=== PATIENT | female | born 1990 | race African-American/Black ===

== ENCOUNTER 2017-08-20 10:22 | Emergency (ER) | payer MEDICAID ==
[2016-10-30 09:32] VITALS: BMI 50.6
[~2017-08-20 10:22] MED LIST: HUMULIN N100 U/ML SC; IBUPROFEN600 MG PO; IBUPROFEN800 MG PO; PERCOCET 10/3251 TA1 PO; PERCOCET 5-3251 TAB PO
== END 2017-08-20 11:06 | disposition home or self-care (01) ==
LOC: D.ER 10:22
DX: M25.552 Pain in left hip (principal); W19.XXXA Unspecified fall, initial encounter; Y93.89 Activity, other specified; Y92.512 Supermarket, store or market as the place of occurrence of the external cause

== ENCOUNTER 2019-02-14 09:39 | Emergency (ER) | payer MEDICAID ==
[~2019-02-14] VITALS: Ht 154.9 cm; Wt 109.1 kg
[2019-02-14 09:42] VITALS: Ht 154.9 cm; Wt 109.1 kg
[2019-02-14 10:34] LABS: BASOPHILS 0.3 % (0-2); EOSINOPHILS 4.4 % (0-7); HEMATOCRIT 42.3 % (36.0-48.0); HEMOGLOBIN 14.7 g/dL (12-16); IMMATURE GRANULOCYTES 0.3 % (0-5); LYMPHOCYTES 32.2 % (15-50); MCH 29.4 pg (26.0-34.0); MCHC 34.8 g/dL (31.0-37.0); MCV 84.6 fL (80.0-100.0); MEAN PLATELET VOLUME 10.5 fL (7.4-10.4); MONOCYTES 7.4 % (2-11); NEUTROPHILS 55.4 % (40-80); RDW 13.5 % (11.5-14.5); WBC 6.6 10x3/uL (4.8-10.8)
[2019-02-14 10:47] LABS: APTT 34.8 SECONDS (22.8-39.4); INR 0.99 (0.85-1.17); PROTIME 12.6 SECONDS (11.6-15.0)
[2019-02-14 10:48] LABS: D-DIMER-QUANTITATIVE 0.37 ug/mLFEU (0.20-0.54)
[2019-02-14 10:51] LABS: PLATELET COUNT 262 10x3/uL (130-400)
[2019-02-14 10:52] LABS: ALBUMIN 3.7 g/dL (3.4-5.0); ALKALINE PHOSPHATASE 58 U/L (46-116); ALT (SGPT) 11 U/L (10-68); BILIRUBIN - TOTAL 0.29 mg/dL (0.2-1.3); CALC OSMOLALITY 280 mosm/kg (275-300); CALCIUM 9.1 mg/dL (8.5-10.1); CARBON DIOXIDE 25.7 mmol/L (21.0-32.0); CHLORIDE - SERUM 105 mmol/L (98-107); CREATININE - SERUM 0.7 mg/dL (0.6-1.3); GLUCOSE 110 mg/dL (74-106); POTASSIUM - SERUM 3.6 mmol/L (3.5-5.1); PROTEIN - SERUM 8.3 g/dL (6.4-8.2); SODIUM 140 mmol/L (136-145); UREA NITROGEN 16 mg/dL (7-18); eGFR NON AFRICAN AMERICAN > 90 mL/min (90-120)
[2019-02-14 11:03] LABS: C-REACTIVE PROTEIN 3.3 mg/dL (0.0-0.9); CKMB 0.4 U/L (0.0-3.6); CREATINE KINASE 88 UL (21-215); MAGNESIUM - SERUM 2.4 mg/dL (1.8-2.4)
[2019-02-14 11:07] LABS: TROPONIN-I < 0.017 ng/mL (0.000-0.060)
[2019-02-14] MEDS ORDERED: STERAPRED DS 1010 MG PO (11:59)
[2019-02-14] MEDS ORDERED: IBUPROFEN800 MG PO (11:59)
[2019-02-14 12:12] LABS: ERYTHROCYTE SEDIMENTATION RATE 30 mm/hr (0-20)
[2019-02-14 12:33] VITALS: BP 105/61
--- NOTE | 2019-02-17 15:03 | CN ---
PATIENT NAME:NICOLE ZABALA MEDICAL RECORD: [id number] : 89 LOCATION:.ER ADMIT DATE: ACCOUNT: [id number] CONSULTING PHYSICIAN: KELVIN SILVA MD REFERRING PHYSICIAN: RADHA VILLAVICENCIO MD DATE OF CONSULTATION: 02/14/2019 CARDIOLOGY CONSULTATION DIAGNOSES: 1. Chest pain compatible with pericarditis. 2. Recent viral illness. HISTORY OF PRESENT ILLNESS: Mrs. Moreno presents with chest pain. It is a sharp stabbing pain, it is worse when she is lying down, better when she sits up. She has had a recent viral illness. Her EKG has nonspecific ST changes compatible with pericarditis. PHYSICAL EXAMINATION: GENERAL APPEARANCE: Well-nourished, well-developed, appears stated age. Level of distress, comfortable. PSYCHIATRIC: Mental status, alert, normal affect. Orientation, oriented to time, place and person. EYES: Lids and conjunctiva, noninjected. No discharge, no pallor. ENT: Lips, teeth, gums, normal dentition. Oropharynx, no cyanosis, no pallor. NECK: Carotid arteries, bilateral normal upstroke, no bruits, no thrills. JUGULAR VEINS: No jugular venous pressure or distention. CERVICAL LYMPH NODES: Nontender, nonenlarged. THYROID: Not enlarged. Nontender. No nodules. LUNGS: Respiratory effort, unlabored. CHEST: Normal curvature. No thoracic deformity. No chest wall tenderness. Percussion, resonant. Auscultation, clear. No wheezes, no rales, no rhonchi. CARDIOVASCULAR: Precordial exam, nondisplaced. No heaves or pericardial thrills. Rate and rhythm, regular. Heart sounds, normal S1, normal S2. No S3, no gallop, no rub. Systolic murmur, not heard. Diastolic murmur, not heard. EXTREMITIES: No cyanosis, no edema. Peripheral pulses, full and equal in all extremities, except as noted. No bruits appreciated. ABDOMEN: Soft, nondistended. Normal aorta. No bruit. Nontender. No masses. Liver, nontender, no hepatomegaly. Spleen, nontender, no splenomegaly. MUSCULOSKELETAL: No joint tenderness. No joint swelling. No erythema. NEUROLOGICAL: Normal gait, normal strength, normal tone. SKIN: Warm and dry. OVERALL IMPRESSION: Chest pain compatible with pericarditis. EKG compatible with pericarditis, most likely is viral a pericarditis. I have asked her to take Motrin on a b.i.d. basis as well as we will give her a Medrol Dosepak. We will follow up only if she has recurrent chest pain. TRANSINT:[id number] Voice Confirmation ID: [id number] DOCUMENT ID: [id number] CONSULT REPORT [id number] NICOLE ZABALA, KELVIN MCKINLEY at 1503 CC: [id number] DICTATION DATE: 02/14/19 1144 BUSINESS QUALITY ASSURANCE ANALYST: 02/14/19 1248 DEP ER 02/14/19 [id number] [place] [address]
--- NOTE | 2019-02-17 15:03 | EC ---
PATIENT:NICOLE ZABALA DATE OF SERVICE: 02/14/19 SEX: F MEDICAL RECORD: [id number] DATE OF : [birth year] LOCATION:D.ER AGE OF PATIENT: 28 ADMISSION DATE: 02/14/19 REFERRING PHYSICIAN: INTERPRETING PHYSICIAN: KELVIN ARANDA MD ECHOCARDIOGRAM REPORT ECHO CHARGES 4 ECHO COMPLETE Date: 02/14/19 CLINICAL DIAGNOSIS: CP ECHOCARDIOGRAPHIC MEASUREMENTS (adult normal given) AC root (d.<3.7cm) 2.7 cm LV Septum d (<1.2 cm> 1.2 cm Valve Excursion 1.6 cm LV Septum (systole) 1.7 cm Left Atria (s.<4.0cm> 3.4 cm LVPW d(<1.2cm) 0.9 cm RV (d.<2.3cm) 3.0 cm LVPW (sytole) 1.1 cm LV diastole(<5.6CM) 5.1 cm MV E-F(>70mm/sec) cm LV systole 3.7 cm LVOT Diameter 1.4 cm MV exc.(>10mm) cm Est.ejection fraction (50-75%) % DOPPLER: LVIT cm/sec A 27 cm/sec E 65 cm/sec LA cm/sec RVSP 17.8 mmHg LVOT 120 cm/sec AOP1/2T m/s Asc. Ao 124 cm/sec RVOT 65 cm/sec RA cm/sec PA 97 cm/sec AV Gradient Peak 6.2 mmHg AV Mean 3.3 mmHg AV Area 1.6 cm MV Gradient Peak 2.2 mmHg MV Mean 0.9 mmHg MV Area cm COMMENTS: Hospital Superintendent: Nirav [facility] Muck Boss: 1 Dr. Aranda TAPE# PACS Pericardial Effusion N DATE OF SERVICE: 02/14/2019 PROCEDURE: Echocardiogram. FINDINGS: 1. Left ventricular chamber size is within normal limits. Left ventricular systolic function is normal. Overall ejection fraction estimated at 55%. 2. Left atrium, right atrium, and right ventricle chamber sizes are within normal limits. 3. Valvular structures have normal structure and motion. ECHOCARDIOGRAM REPORT [id number] NICOLE ZABALA 4. Doppler interrogation reveals mild tricuspid regurgitation, no other valvular insufficiency or stenosis. Pulmonary systolic pressure is normal estimated at 18 mmHg. 5. No evidence of pericardial effusion or left ventricular thrombus. TRANSINT:[id number] Voice Confirmation ID: [id number] DOCUMENT ID: [id number] KELVIN ARANDA MD at 1503 CC: [id number] DICTATION DATE: 02/14/19 1210 TABLE LEVER OPERATOR: 02/14/19 1347 DEP ER 02/14/[address] [facility] [address] [id number]
== END 2019-02-14 12:31 | disposition home or self-care (01) ==
LOC: D.ER 09:39
PROVIDERS: Family Medicine
DX: I31.9 Disease of pericardium, unspecified (principal)

== ENCOUNTER 2019-04-02 18:11 | Emergency (ER) | payer MEDICAID ==
[~2019-04-02 18:11] MED LIST changes: +STERAPRED DS 1010 MG PO
[2019-04-02 18:14] VITALS: BMI 44.8
[2019-04-02 18:48] LABS: APPEARANCE CLEAR (CLEAR); BILIRUBIN NEGATIVE (NEGATIVE); COLOR STRAW (YELLOW); GLUCOSE NEGATIVE (NEGATIVE); KETONE NEGATIVE (NEGATIVE); NITRITE NEGATIVE (NEGATIVE); PROTEIN NEGATIVE (NEGATIVE); UROBILINOGEN NORMAL (NORMAL)
[2019-04-02 18:58] LABS: BASOPHILS 0.2 % (0-2); EOSINOPHILS 1.5 % (0-7); HEMATOCRIT 38.9 % (36.0-48.0); HEMOGLOBIN 13.7 g/dL (12-16); IMMATURE GRANULOCYTES 0.1 % (0-5); LYMPHOCYTES 34.1 % (15-50); MCH 29.6 pg (26.0-34.0); MCHC 35.2 g/dL (31.0-37.0); MEAN PLATELET VOLUME 9.8 fL (7.4-10.4); MONOCYTES 8.8 % (2-11); NEUTROPHILS 55.3 % (40-80); PLATELET COUNT 238 10x3/uL (130-400); RBC 4.63 10x6/uL (4.00-5.40); RDW 13.3 % (11.5-14.5); WBC 8.2 10x3/uL (4.8-10.8)
[2019-04-02 21:07] VITALS: BP 132/79
== END 2019-04-02 21:07 | disposition home or self-care (01) ==
LOC: D.ER 18:11
PROVIDERS: Emergency Medicine
DX: O26.891 Other specified pregnancy related conditions, first trimester (principal); Z3A.01 Less than 8 weeks gestation of pregnancy

== ENCOUNTER → 2019-10-16 11:59 | Outpatient (CLI) | payer MEDICAID ==
[2019-10-16 14:41] LABS: APPEARANCE CLEAR (CLEAR); BILIRUBIN NEGATIVE (NEGATIVE); COLOR YELLOW (YELLOW); GLUCOSE NEGATIVE (NEGATIVE); KETONE NEGATIVE (NEGATIVE); NITRITE NEGATIVE (NEGATIVE); PROTEIN NEGATIVE (NEGATIVE); SPECIFIC GRAVITY 1.015 (1.005-1.020); UROBILINOGEN NORMAL (NORMAL)
== END | disposition home or self-care (01) ==
LOC: D.LDO 11:59
PROVIDERS: ATTEND Student in an Organized Health Care Education/Training Program
DX: O26.899 Other specified pregnancy related conditions, unspecified trimester (principal); R10.9 Unspecified abdominal pain; M54.9 Dorsalgia, unspecified

== ENCOUNTER 2019-11-04 22:03 | Observation (INO) | payer MEDICAID ==
[~2019-11-04] VITALS: Ht 154.9 cm; Wt 111.6 kg
--- NOTE | 2019-11-04 22:12 | NUR ---
PT DENIES CONTRACTIONS AT THIS TIME.
[2019-11-05 00:48] VITALS: BP 94/50; Ht 154.9 cm; Wt 111.6 kg
[2019-11-05 01:14] LABS: BASOPHILS 0.1 % (0-2); EOSINOPHILS 0.9 % (0-7); HEMATOCRIT 34.2 % (36.0-48.0); HEMOGLOBIN 11.7 g/dL (12-16); IMMATURE GRANULOCYTES 0.5 % (0-5); LYMPHOCYTES 21.9 % (15-50); MCH 28.9 pg (26.0-34.0); MCHC 34.2 g/dL (31.0-37.0); MCV 84.4 fL (80.0-100.0); MEAN PLATELET VOLUME 10.4 fL (7.4-10.4); MONOCYTES 6.7 % (2-11); NEUTROPHILS 69.9 % (40-80); RBC 4.05 10x6/uL (4.00-5.40); RDW 15.1 % (11.5-14.5); WBC 8.9 10x3/uL (4.8-10.8)
[2019-11-05 01:17] LABS: PLATELET COUNT 173 10x3/uL (130-400)
[2019-11-05 01:22] LABS: INR 1.05 (0.85-1.17); PROTIME 13.2 SECONDS (11.6-15.0)
[2019-11-05 01:23] LABS: APTT 30.6 SECONDS (22.8-39.4)
[2019-11-05 08:55] VITALS: BP 98/51
--- NOTE | 2019-11-05 14:03 | NUR ---
DR LORD WAS NOTIFIED THAT PER DR MARTINEZ'S ORDER PATIENT CAN BE DC'D HOME AFTER PHYSICAL THERAPY TEACHES PATIENT HOW TO USE A WALKER. ORDERS RECEIVED TO DC PT HOME AFTER ABOVE. F/U SCHEDULED.
--- NOTE | 2019-11-05 16:21 | MORECARE ---
CASE MANAGEMENT DISCHARGE SUMMARY PATIENT: NICOLE ALCANTARA UNIT: [id number] ADM DATE: 11/04/19 AGE: 28 : [birth year] SEX: F ROOM/BED: D.1227 AUTHOR: CHUNG BUSTAMANTE PHYSICIAN: REFERRING PHYSICIAN: LANDON LORD MD DATE OF SERVICE: 11/05/19 Discharge Plan Patient Name: NICOLE ALCANTARA Facility: [facility]:[place] : 1990 Planned Disposition: Home Anticipated Discharge Date: Discharge Date: Expected LOS: Initial Reviewer: [email or web address] Initial Review Date: 11/05/2019 Generated: 11/05/19 5:21 pm External Providers External Provider: Richard Next Contact Date: Service Request Date: Service Type: Resolution: Reviewer: Comments: Coverage Notice Reviewer: [email or web address] Laureen Zacarias Notice Issued Date-Time: 11/05/2019 16:20 Notice Type: Patient Choice Letter Notice Delivered To: Patient Relationship to Patient: Dredge Captain Name: Delivery Method: PHONE - Phone Bev Days: Prior Verbal Notification: Recipient Understood Notice: Yes Recipient Signature: Med Rec Note Co-signed by Attending: Coverage Notice Comment: MARCUS FOR DME OF [facility] Patient Name: NICOLE ALCANTARA Page [phone] at 1621 All edits/amendments must be made on the electronic document DICTATION DATE: 11/05/191620 GROUNDS MAINTENANCE WORKER: YANCI 11/05/191620 RPT#: [id number] DC DATE: STATUS: ADM IN [facility] [address] [place] [address] END OF REPORT
--- NOTE | 2019-11-05 16:28 | MORECARE ---
CASE MANAGEMENT DISCHARGE SUMMARY PATIENT: NICOLE ALCANTARA UNIT: [id number] ADM DATE: 11/04/19 AGE: 28 : 89 SEX: F ROOM/BED: D.1227 AUTHOR: CHUNG BUSTAMANTE PHYSICIAN: REFERRING PHYSICIAN: LANDON LORD MD DATE OF SERVICE: 11/05/19 Discharge Plan Patient Name: NICOLE ALCANTARA Facility: [facility]:[place] : 1990 Planned Disposition: Home Anticipated Discharge Date: Discharge Date: Expected LOS: Initial Reviewer: [email or web address] Initial Review Date: 11/05/2019 Generated: 11/05/19 5:28 pm Comments DCP- Discharge Planning Updated by [email or web address]: Kenna Zacarias on 11/05/19 3:[address] Patient Name: NICOLE ALCANTARA Admission Status: ER Accout number: [id number] Admission Date: 11-04-2019 : 1990 Admission Diagnosis: Attending: LANDON LORD Current LOS: 1 Anticipated DC Date: Planned Disposition: Home Primary Insurance: MEDICAID [place] Discharge Planning Comments: I SPOKE WITH PATIENT OVER THE PHONE AFTER RECEIVING A CALL FROM HER NURSE. SHE WILL NEED A BEDSIDE COMMODE AND WALKER FOR HOME. SHE STATES WANTS [facility] FOR HER DME. REFERRAL SENT TO [facility] AND [facility] WITH [facility] WILL DELIVER EQUIPMENT TOMORROW. CM TO FOLLOW AND ASSIST. Rv Detailer: Kenna Zacarias Coverage Notice Reviewer: [id number] - Kenna Zacarias Notice Issued Date-Time: 11/05/2019 16:20 Notice Type: Patient Choice Letter Notice Delivered To: Patient Relationship to Patient: Manager Programs Name: Delivery Method: PHONE - Phone Bev Days: Prior Verbal Notification: Recipient Understood Notice: Yes Recipient Signature: Med Rec Note Co-signed by Attending: Coverage Notice Comment: MARCUS FOR D[facility] OF [facility] Last DP export: 11/05/19 3:21 Patient Name: NICOLE ALCANTARA Page [phone] at 1628 All edits/amendments must be made on the electronic document DICTATION DATE: 11/05/191627 FUNERAL HOME MAKEUP ARTIST: DM 11/05/191627 RPT#: [id number] DC DATE: STATUS: ADM IN [facility] [address] [place] [address] END OF REPORT
--- NOTE | 2019-11-05 16:30 | NUR ---
PHONE CALL RECEIVED FROM MARK IN CASE MANAGEMENT, PLAN TO FAX DME ORDER TO [facility] [place] TODAY, [facility] [place] CAN NOT DELIVER WALKER AND BEDSIDE COMMODE UNTIL TOMORROW, REQUEST FROM MARK TO [facility] [place] TO BRING THESE ITEMS FIRST THING IN THE AM. PT NOTIFIED OF PLAN OF CARE.
--- NOTE | 2019-11-05 18:54 | NUR ---
PT CALLS OUT SNAKE CHARMER LIGHT AND REQUESTS ANOTHER PAIN PILL, STATES HER LEFT SIDE OF BACK IS HURTING AGAIN, AND PT REPORTS "MY HEAD IS STARTING TO HURT". SEE EMAR FOR ALL MEDS ADM BY THIS RN. LARGE GLASS OF ICE WATER SERVED. PT STATES "I GOT MYSELF UP TO THE BATHROOM, AND WENT TO PEE, AND I USED THE BEDSIDE TABLE TO WALK MYSELF TO THE BATHROOM. PT ENCOURAGED TO CALL OUT SNAKE CHARMER LIGHT AND ASK FOR ASSISTANCE UP TO THE BATHROOM INFORMED EARLIER IN THE DAY WITH PT'S ACKNOWLEDEMENT OF THIS. PT CURRENTLY IN THE BED, WITH FAMILY AT BEDSIDE. SRUP X 2, CALL LIGHT AND PHONE WITHIN REACH.
--- NOTE | 2019-11-05 19:32 | NUR ---
THIS RN AND A TELOL RN TO BEDSIDE FOR BEDSIDE SHIFT REPORT. PT CURRENTLY AA&O X 4. PAIN REASSESSED AFTER PAIN SURGICAL CLINICAL REVIEWER. PT REPORTS HER PAIN IS "ABOUT THE SAME. THAT SHE ISN'T CURRENTLY HAVING ANY DIFFERENT PAIN OR RELIEF." PT INFORMED THAT THIS RN WILL RETURN SHORTLY TO PERFORM A SHIFT ASSESSMETN. PT DENIES NEEDS AT THIS TIME. BED LOW,SIDE RAILS UP X 2. CALL LIGHT AT PT'S SIDE. PT VERBALIZES UNDERSTANDING IS AGREEABLE.
[2019-11-05 19:58] VITALS: BP 109/53
--- NOTE | 2019-11-05 19:58 | NUR ---
THIS RN TO BEDSIDE FOR SHIFT ASSESSMENT. PT NOW C/O THAT HER RT HIP IS ALSO HURTING AND STATES "I THINK IT'S BECAUSE I WAS FOCUSING TRYING TO RELIEVE THE PAIN IN MY LEFT HIP. PT HAS REPOSITIONED IN BED TO ATTEMPT TO RELIEVE THE PAIN. NO REQUEST FOR ADDITIONAL PAIN INTERVENTIONS AT THIS TIME W/OFFERED BY THIS RN. SEE FLOWSHEET FOR ASSESSMENT. A WALKER PROVIDED TO PT AT THIS TIME W/INSTRUCTIONS ON USE AND PT INSTRUCTED TO USE IF SHE NEEDS UP TO VOID. PT VERBALIZES UNDERSTANDING OF HOW TO USE THE WALKER AND IS AGREEABLE IN DOING SO. PT'S BEDSIDE TABLE MOVED TO THE OPPOSITE SIDE OF THE BED AND WALKER PLACED ON SIDE NEAREST TO THE RESTROOM. DINNER TRAY REMOVED FROM ROOM. FRESH ICE WATER SERVED. PT DENIES FURTHER NEEDS AT THIS TIME. BED LOW, SIDE RAILS UP X 2. CALL LIGHT AT PT'S SIDE. PT ENCOURAGAED TO CALL OUT PSYCH SALES SPECIALIST LIGHT IF SHE NEEDS ASSISTS IN GETTING OUT OF BED. PT AGREEABLE.
--- NOTE | 2019-11-05 20:30 | NUR ---
ROUNDS MADE. PT AWAKE IN BED USING HER CELLPHONE. DENIES NEEDS AT THIS TIME. REPORTS PAIN REMAINS THE SAME. 05/01.
[2019-11-05 23:13] VITALS: BP 95/48
--- NOTE | 2019-11-05 23:25 | NUR ---
SEE CENTRICITY NOTES FOR FULL DOCUMENATION.
== END 2019-11-06 14:20 | disposition home or self-care (01) ==
LOC: D.ER 22:03 → D.LD 22:52 → OBSVTIME 22:52 → D.LD 11-06 14:20
PROVIDERS: ADMIT Obstetrics & Gynecology; ATTEND Obstetrics & Gynecology
DX: O26.893 Other specified pregnancy related conditions, third trimester (principal); Z3A.39 39 weeks gestation of pregnancy; S70.02XA Contusion of left hip, initial encounter; W19.XXXA Unspecified fall, initial encounter; O99.213 Obesity complicating pregnancy, third trimester

== ENCOUNTER 2019-11-17 10:29 | Inpatient (IN) | payer MEDICAID ==
[~2019-11-17] VITALS: Ht 154.9 cm; Wt 112.5 kg
--- NOTE | ~2019-11-17 | OP ---
PATIENT NAME: NICOLE ALCANTARA MEDICAL RECORD: [id number] :89 LOCATION:[facility] [id number] ADMISSION DATE:11/17/19 SURGEON: ROLANDO BALDERAS DO DATE OF OPERATION: 11/17/2019 PREOPERATIVE DIAGNOSES: Scheduled repeat ; multiparity, desire for permanent sterilization. POSTOPERATIVE DIAGNOSES: Scheduled repeat ; multiparity, desire for permanent sterilization, suspected adenomyosis. PRIMARY SURGEON: Rolando Balderas DO FINISH REPAIRER SURGEON: Dr. López. ANESTHESIA: Milvia Butts CRNA PROCEDURE: Scheduled repeat , supracervical hysterectomy, bilateral salpingectomy. FINDINGS: Extensive intra-abdominal adhesions, thickened uterus, normal appearing bilateral fallopian tubes and ovaries. Female , weight 7 pounds 7.8 ounces, delivered at 1306 hours, Apgars 9 and 9, delivered in vertex position; however, fetus was noted to be in transverse position upon entering the uterus. SPECIMENS: Placenta, cord, uterus, partial cervix, and bilateral fallopian tubes. ESTIMATED BLOOD LOSS: 1500 cc. IV FLUIDS: 3500 cc. URINE OUTPUT: 242 cc, milky urine. COMPLICATIONS: Complications during delivery of the fetus was transverse and the hysterotomy had to be extended vertically. It was then attempted to be repaired in layers; however, due to suspected adenomyosis, the bleeding was unable to be controlled and an emergent hysterectomy was performed. DESCRIPTION OF PROCEDURE: The risks, benefits, alternatives, and indications of procedure were discussed with the patient. She voiced understanding of the procedure and signed a consent. She voiced understanding that a tubal ligation is a permanent form of sterility and expressed desire for no more children. She was taken to the OR where spinal anesthesia was administered and found to be adequate. She was placed in the dorsal supine position with leftward tilt. A Pfannenstiel skin incision was made with a scalpel and carried down to the underlying layer of the fascia with the Bovie. The fascia was incised with the midline and extended laterally. The inferior aspect of the fascial incision was grasped with Rosy clamps and the rectus muscle was dissected off sharply. Attention was then turned to the superior aspect of the fascial incision and the rectus muscle was dissected off in a similar fashion. The rectus muscle was in the midline down to the level of the peritoneum. The peritoneum was identified and noted to be free of adherent bowel and entered bluntly. The peritoneum was further with gentle traction and tried to abdominal OPERATIVE REPORT [id number] NICOLE ALCANTARA adhesions of the uterus to the anterior abdominal wall were noted. A scalpel was used to incise the uterus in a transverse fashion lower uterine segment. The incision was extended with cephalad caudad traction. The was noted to be in transverse position, which was attempted to be converted to a vertex position for delivery. The delivered without difficulty. Mouth and nose were suctioned. Cord was clamped and cut and the was handed off to waiting pediatricians. The placenta was manually removed. The uterus was exteriorized and a moist lap was used to assure complete removal of placental membranes. At that time, it was noted that the defect in the uterus extending upward from the hysterotomy was noted. This was attempted to be repaired in layers; however, due to the thickness of the uterus and suspected adenomyosis, it was difficult to repair this defect. Extensive bleeding was noted and due to these complications, decision for emergent hysterectomy was made. At that time, the round ligament on the left side was clamped, suture ligated and cut with the Bovie. The anterior leaf of the broad ligament was dissected to the midline of the vesicouterine peritoneum. The bladder was dissected off the lower uterine segment and the cervix. A window was created in the avascular area of the posterior leaf. The uteroovarian ligament and fallopian tube were clamped, cut and doubly ligated. The uterine vessels were skeletonized, doubly clamped and cut. The pedicles were suture ligated and good hemostasis was noted. The entire procedure was then repeated on the right side and the uterus was amputated at the level of the internal os. The vaginal cuff was closed with 0 Vicryl suture in a [id number]-[id number] fashion with good hemostasis noted. The pelvis was irrigated with warm sterile water and again good hemostasis was noted. At that time, Alisson was placed. All instruments were removed from the abdomen and the counts were correct times 2. The rectus muscle was closed with 2-0 Monocryl in a running fashion with good hemostasis. The fascial incision was closed with 0 Vicryl in running fashion with good hemostasis. The skin was closed in a subcuticular fashion with 3-0 Monocryl and Dermabond, covering. All needle, lap, sponge, and instrument counts were correct times 2. The patient tolerated the procedure well and she was taken to the recovery room in stable condition. ADDENDUM: Prior to amputating the uterus, the bladder was filled with sterile milk to ensure visualization of the bladder edges. TRANSINT:[id number] Voice Confirmation ID: [id number] DOCUMENT ID: [id number] ROLANDO BALDERAS DO CC: [id number] DICTATION DATE: 11/23/19 0844 MARINE ENGINE MACHINIST: 11/23/19 1116 DIS IN 11/21/19 [address] [place] [address]
[2019-11-17 10:50] VITALS: BP 120/60; Ht 154.9 cm; Wt 112.5 kg
[2019-11-17 11:20] LABS: HEMATOCRIT 40.8 % (36.0-48.0); HEMOGLOBIN 14.2 g/dL (12-16); MCH 29.3 pg (26.0-34.0); MCHC 34.8 g/dL (31.0-37.0); MCV 84.1 fL (80.0-100.0); MEAN PLATELET VOLUME 10.2 fL (7.4-10.4); RBC 4.85 10x6/uL (4.00-5.40); RDW 14.8 % (11.5-14.5); WBC 8.7 10x3/uL (4.8-10.8)
[2019-11-17 11:42] LABS: APPEARANCE HAZY (CLEAR); BILIRUBIN NEGATIVE (NEGATIVE); COLOR YELLOW (YELLOW); GLUCOSE NEGATIVE (NEGATIVE); KETONE NEGATIVE (NEGATIVE); NITRITE NEGATIVE (NEGATIVE); PROTEIN NEGATIVE (NEGATIVE); SPECIFIC GRAVITY 1.025 (1.005-1.020); UROBILINOGEN NORMAL (NORMAL)
[2019-11-17 11:53] LABS: UDS - AMPHET NEGATIVE QUAL (NEGATIVE); UDS - BARB NEGATIVE QUAL (NEGATIVE); UDS - BENZO NEGATIVE QUAL (NEGATIVE); UDS - COCAINE NEGATIVE QUAL (NEGATIVE); UDS - OPIATE NEGATIVE QUAL (NEGATIVE); UDS - PCP NEGATIVE QUAL (NEGATIVE); UDS - THC POSITIVE QUAL (NEGATIVE)
[2019-11-17 16:09] VITALS: BP 146/70
--- NOTE | 2019-11-17 16:09 | NUR ---
PT RCVD FROM RECOVERY VIA BED TO ROOM 1278. PT Ox3, RATING PAIN 9/10 BUT FREQUENTLY DROWSY WHEN NOT VERBALLY STIMULATED. VSS, SEE FLOWSHEET FOR DOC. IV INFUSING LR ORDERED TO RIGHT WRIST, RN REPORTS IV WAS RESITE IN O.R. LARGE OCCLUSIVE PRESSURE DRESSING NOTED OVER LT ABD INCISION, C/D/I. PERIPAD HAS SCANT VAGINAL BLEEDING. TUTTLE CATH DRAINING MILKY YELLOW URINE TO BEDSIDE DRAINAGE, TUBING SECURED IN STAT LOCK TO RIGHT THIGH. BAND AND CUFF CUTTER REPORTS STERILE FORMULA WAS USED IN O.R. TO IRRIGATE BLADDER, GIVING THE URINE A MILKY COLOR. 35ML NOTED IN UROMETER AND EMPTIED. SCD'S ON LE BILAT AND ON PUMP. PT AGREEEABLE TO TRYING ICE PACK AND WARM PACK FOR PAIN BEFORE MEDS. SRUx2, CL IN REACH. FAMILY AT BESIDE. WILL RETURN.
--- NOTE | 2019-11-17 16:20 | NUR ---
ICE PACK TO ABD INCISION. HEEL WARMER PACK TO PT'S LOWER BACK PER REQUEST FOR BACK PAIN/ACHE.
--- NOTE | 2019-11-17 16:39 | NUR ---
DR BALDERAS PHONED WITH PT C/O PAIN RATED 9/10 IN BACK, REPORT GIVEN ON WHAT PT RECEIVED IN RECOVERY, AND OXYGEN SATURATIONS ON RA. ORDER RECEIVED FOR 0.5MG DILAUDID NOW, AND REASSESS AT 30MIN. IF RESPIRATORY STATUS REMAINS STABLE AND PT CONTINUES TO C/O SEVERE PAIN AFTER 30MIN, MAY ADMIN OTHER 0.5MG. PT MAY NOT HAVE TORADOL AT THIS TIME.
--- NOTE | 2019-11-17 16:59 | NUR ---
PT ADMIN DILAUDID PER ORDER, SEE EMAR. WILL REASSESS.
--- NOTE | 2019-11-17 17:00 | NUR ---
PT REPORTS IMPROVEMENT IN PAIN, DENIES NEEDS AT THIS TIME. ABD DRESSING CHECKED AND NOTED TO BE C/D/I. NO ADDITIONAL VAGINAL BLEEDING NOTED TO PERIPAD. TUTTLE CATH DRAINING CLEAR YELLOW URINE TO BEDSIDE, 50ML EMPTIED FROM UROMETER. SRUx2, CL IN REACH. FAMILY AT BEDSIDE.
--- NOTE | 2019-11-17 17:48 | NUR ---
THIS RN TO ROOM FOR PT CHECK AND NEW IV BAG LR. NEW BAG HUNG AT 125ML/H PER ORDER. PT POSITIONED TO SITTING UP IN BED TO HOLD INFANT. PT DENIES NEED FOR OTHER HALF DOSE OF DILAUDID AT THIS TIME, WANTS TO HOLD INFANT. WILL REASSESS. PT'S MOTHER AT BEDSIDE. SRUx2, CL IN REACH. NURSERY NURSE TALKING WITH PT.
--- NOTE | 2019-11-17 18:26 | NUR ---
THIS RN TO ROOM FOR PT CHECK. PT VISITING WITH VISITORS WHO ARE HOLDING INFANT. 75ML EMPTIED FROM UROMETER, MILKINESS CLEARING TO CLEAR YELLOW URINE. SRUx2, CL IN REACH. WILL CONT TO MONITOR.
[2019-11-17 19:06] LABS: BASOPHILS 0.1 % (0-2); EOSINOPHILS 0 % (0-7); HEMATOCRIT 34.9 % (36.0-48.0); IMMATURE GRANULOCYTES 0.2 % (0-5); LYMPHOCYTES 9.2 % (15-50); MCH 29.3 pg (26.0-34.0); MCHC 34.4 g/dL (31.0-37.0); MCV 85.1 fL (80.0-100.0); MEAN PLATELET VOLUME 10.3 fL (7.4-10.4); MONOCYTES 6.4 % (2-11); NEUTROPHILS 84.1 % (40-80); PLATELET COUNT 188 10x3/uL (130-400); RDW 14.9 % (11.5-14.5)
[2019-11-17 19:21] LABS: ALBUMIN 2.2 g/dL (3.4-5.0); ALKALINE PHOSPHATASE 95 U/L (46-116); ALT (SGPT) 10 U/L (10-68); BILIRUBIN - TOTAL 0.23 mg/dL (0.2-1.3); CALC OSMOLALITY 273 mosm/kg (275-300); CALCIUM 8.1 mg/dL (8.5-10.1); CARBON DIOXIDE 20.9 mmol/L (21.0-32.0); CHLORIDE - SERUM 106 mmol/L (98-107); CREATININE - SERUM 0.4 mg/dL (0.6-1.3); GLUCOSE 92 mg/dL (74-106); POTASSIUM - SERUM 4.1 mmol/L (3.5-5.1); PROTEIN - SERUM 5.4 g/dL (6.4-8.2); SODIUM 138 mmol/L (136-145); UREA NITROGEN 8 mg/dL (7-18); eGFR NON AFRICAN AMERICAN > 90 mL/min (90-120)
[2019-11-17 19:33] LABS: WBC 15.6 10x3/uL (4.8-10.8)
[2019-11-17 19:35] LABS: APTT 28.7 SECONDS (22.8-39.4); INR 1.04 (0.85-1.17); PROTIME 13.1 SECONDS (11.6-15.0)
[2019-11-17 19:36] VITALS: BP 124/59
--- NOTE | 2019-11-17 19:36 | NUR ---
PT COMPLAINING OF 9/10 PAIN TO HER COCCYX AREA. PT HAS A TUTTLE IN PLACE, U.O OF 100ML NOTED, YELLOW CLOUDY URINE NOTED IN UROMETER. PT BLEEDING IS SCANT TO NONE, PARTIAL BEDDING CHANGED. PT STATES THAT SHE HAS NO OTHER NEEDS AT THIS TIME. RN TO CONSULT WITH MD FOR PATIENT PAIN MANAGEMENT. BED IN LOWEST POSITION, SIDE RAILS UP X2 , TELEPHONE AND CALL LIGHT WITHIN REACH.
--- NOTE | 2019-11-17 21:49 | NUR ---
MARRY D/C PER DR. SY. PT AMBULATED WITH RN ASSISTANCE TO BATHROOM. PT VOIDED 200ML. PT AMBULATED BACK TO BED WITH STANDBY ASSISTANCE. TOLERATED AMBULATION WELL. BED IN LOWEST POSITION. PT HAS NON-SKID SOCKS ON. SIDE RAILS UP X2, CALL LIGHT AND PHONE WITHIN REACH.
[2019-11-18 00:18] VITALS: BP 85/52
--- NOTE | 2019-11-18 00:18 | NUR ---
VSS. PT STATES HER PAIN IS IMPROVING SHE SAYS THAT IT IS CURRENTLY A 7/10, BUT THAT IT IS MANAGEABLE AND SHE DOES NOT CURRENTLY NEED ANY INTERVENTIONS. PT HAS SCANT TO NO BLEEDING. PT'S DRESSING TO ABDOMINAL INCISION IS DRY AND INTACT. PT STATES THAT SHE ONLY NEEDED THE RN TO BRING HER SOME ICE WATER, RN BROUGHT ICE WATER TO PT'S BEDSIDE. PT STATED THAT ALL HER OTHER NEEDS HAD BEEN MET. BED IN LOWEST POSITION, SIDE RAILS UP X2, TELEPHONE AND CALL LIGHT WITHIN REACH.
[2019-11-18 03:49] VITALS: BP 106/56
--- NOTE | 2019-11-18 03:49 | NUR ---
PT SITTING IN BED. VSS. PT STATES PAIN HAS IMPROVED, PAIN IS 7/10 TO ABDOMEN AND COCCYX AREA. PT PROVIDED WITH ICE WATER AND AN EXTRA PILLOW. PT STATES ALL HER NEEDS HAVE BEEN MET AT THIS TIME. PT BED IN LOWEST POSITION. SIDE RAILS UP X2, TELEPHONE AND CALL LIGHT WITHIN REACH.
[2019-11-18 06:08] LABS: RAPID PLASMA REAGIN Non Reactive (Non Reactive)
[2019-11-18 07:02] VITALS: BP 111/55
--- NOTE | 2019-11-18 07:15 | NUR ---
PT AWAKE AND ALERT ON ENTRY TO ROOM, VSS, AFEBRILE, RESPONDS APPROPRIATELY, ORIENTED X4, RESP EVEN AND UNLABORED, HEART RRR, LUNGS CTAB, OBESE ABD TENDER TO PALPATION, BOWEL SOUNDS PRESENT AND ACTIVE, REPORTS FLATUS, INCISION TO LOW TRANSVERSE ABDOMEN REMAINS COVERED WITH PRESSURE DRESSING, NO VAGINAL BLEEDING OR BLEEDING NOTED ON DRESSING. ICE PACK OVERLAY PROVIDED FOR PT COMFORT, YANCEY FREELY, VOIDS WITHOUT DIFFICULTY, SCDS ON AND FUNCTIONING TO B LE, SALINE LOCK TO RIGHT WRIST INTACT WITH BIOOCCLUSIVE DRESSING. NEGATIVE CALIXTO'S SIGN B LE, PEDAL PULSES STRONG/=/+2 B. PROVIDED CUP OF ICE WATER AND ENCOURAGED PO INTAKE URINE APPEARS LORA IN COLOR AFTER VOIDING TO SPECIPAN. TCBD ENCOURAGED, DISCUSSED PLAN OF CARE TODAY TO INCLUDE AMBULATING TODAY AND SHOWER THIS PM AFTER DRESSING REMOVED. DENIES OTHER NEEDS OR CONCERNS AT THIS TIME, FALL PRECAUTIONS IN PLACE, SIDE RAILS UP X2, BED IN LOW POSITION, BEDSIDE TABLE DECLUTTERED. CALL LIGHT IN EASY REACH, WILL MONITOR FOR CHANGE IN CONDITION.
--- NOTE | 2019-11-18 08:47 | NUR ---
PT C/O INCISIONAL ABDOMINAL AND LOW BACK PAIN ON ROUNDS. 7 OUT OF 10 0N NUMERIC PAIN SCALE, SCHEDULED IV TORADOL ADMINISTERED DILUTED IN 9 ML NS AND PRN PO MED GIVEN WITH SIPS WATER. NOTED SOME MATERNAL BONDING WHILE INFANT BEING FED AND IN ARMS. CALL LIGHT IN EASY REACH, BED IN LOW POSITION, BED BRAKES ON, SIDE RAILS UP X2, WILL MONITOR.
--- NOTE | 2019-11-18 09:19 | NUR ---
CASE MANAGEMENT IN TO SEE PT AT THIS TIME. BREAKFAST TRAY REMOVED FROM PT ROOM, CONSUMED 100% MEAL PROVIDED. WILL MONITOR.
--- NOTE | 2019-11-18 10:30 | NUR ---
ROUNDS COMPLETED, NAD NOTED. PT RESTING IN BED WITH EYES CLOSED, RESP EVEN AND UNLABORED, CALL LIGHT AND PERSONAL BELONGINGS NEARBY ON BEDSIDE TABLE ADJACENT TO BED. WILL MONITOR.
[2019-11-18 11:00] VITALS: BP 112/60
--- NOTE | 2019-11-18 11:20 | NUR ---
ROUNDS COMPLETED, RESP EVEN AND UNLABORED NAD NOTED. WILL MONITOR.
--- NOTE | 2019-11-18 12:15 | NUR ---
DR KRAUS TO PT ROOM, ROUNDS COMPLETED, QUESTIONS ANSWERED. NAD NOTED. PT SITTING UP IN BED, INFANT IN ROLLING CRIB ADJACENT TO BED. CALL LIGHT IN EASY REACH.
--- NOTE | 2019-11-18 13:15 | NUR ---
ROUNDS COMPLETED, CONSUMED 100% REGULAR LUNCH TRAY PROVIDED, RESP EVEN AND UNLABORED, DENIES NEEDS OR CONCERNS. TRAY REMOVED FROM ROOM. CALL LIGHT IN EASY REACH, ENCOURAGED AMBULATION IN HALLS, PT STATES WOULD LIKE TO WAIT FOR A LITTLE BIT.
--- NOTE | 2019-11-18 14:09 | NUR ---
ON ROUNDS, PT LYING IN BED, STATES UNABLE TO AMBULATE, STATES WILL WALK AFTER NEXT SCHEDULED PAIN MED GIVEN AND SHOWER AT THAT TIME. SCDS ON TO B LE AT THIS TIME, CALL LIGHT IN EASY REACH. WILL MONITOR.
--- NOTE | 2019-11-18 15:22 | NUR ---
ROUNDS COMPLETED, SCHEDULED TORADOL ADMINISTERED WITH PRN PERCOCET PER PT REQUEST WITH SIPS WATER. PT ASSISTED OOB TO AMBULATE IN HALLS, PT AMBULATED LESS THAN 50 FT USING ABD PILLOW FOR SUPPORT THEN RETURNED TO BED. PT REFUSING SHOWER AT THIS TIME, STATES " I WILL WAIT FOR MY MOTHER TO GET HERE FROM WORK THEN I WILL TAKE A SHOWER." INFORMED PT THAT THIS RN WOULD CHANGE LINENS WHEN PT TAKING SHOWER. INSTRUCTED PT TO AMBULATE IN HALLS AT LEAST THREE TIMES TODAY. PT STATES UNDERSTANDING BUT STATES "THEY DIDN'T MAKE ME DO THAT THE LAST TIME I WAS HERE AND HAD A BABY." DISCUSSED RATIONALE FOR AMBULATION. PT STATES UNDERSTANDING. WILL MONITOR. NAD NOTED AT THIS TIME.
[2019-11-18 15:54] VITALS: BP 92/50
--- NOTE | 2019-11-18 16:17 | NUR ---
rounds completed, pt states pain level still a 6/10 on numeric pain scale. remains in patient arms sleeping, color pink with even respirations and has not fed yet. instructions given on waking to feed, using light stimulation to feed , pt nods head and states understanding but does not take any action. will notify nursery.
--- NOTE | 2019-11-18 16:45 | NUR ---
DINNER TRAY PROVIDED, PT REMAINS IN BED, IN ARMS AT THIS TIME, NAD NOTED. WILL MONITOR.
--- NOTE | 2019-11-18 17:15 | NUR ---
denies needs or concerns on rounds, will monitor. call light in easy reach.
--- NOTE | 2019-11-18 18:22 | NUR ---
rounds completed, pt sitting upright in bed nad noted. states will take a shower. readied shower for pt shower. new visitors now to room per pt now. will monitor.
--- NOTE | 2019-11-18 18:47 | NUR ---
report given to oncoming shift.
[2019-11-18 19:17] VITALS: BP 118/56
--- NOTE | 2019-11-18 19:17 | NUR ---
VSS. PT COMPLAINS OF 10/10 PAIN TO ABDOMEN. RN TO REVIEW MEDICATION ORDERS ONCE ASSESSMENT IS COMPLETE. SCANT BLEEDING NOTED ON PAD. PT TO AMBULATE TO BATHROOM FOR SHOWER ONCE SHE FINISHES EATING HER DINNER. PT STATES ALL OTHER NEEDS HAVE BEEN MET. BED AT LOWEST POSITION, SIDE RAILS UP X2, TELEPHONE AND CALL LIGHT WITHIN REACH. FAMILY MEMBERS AT BEDSIDE.
--- NOTE | 2019-11-18 19:28 | NUR ---
18G PIV TO RIGHT WRIST REMOVED PER MD ORDERS. TOLERATED WELL. PRESSURE APPLIED TO SITE, GAUZE AND TAPE APPLIED.
--- NOTE | 2019-11-18 19:45 | NUR ---
THIS RN TO PT'S ROOM NBN W/BABY. PT CURRENTLY STANDING AT SIDE OF BED W/2 FAMILY MEMBERS ASSISTING HER. PT CRYING AND REPORTING PULLING/STINGING PAIN TO RT SIDE. WITH ASSESSMENT OF AREA, IT'S NOTED THAT ABD DRESSING HAS PT'S SKIN PINCHED TOGETHER. FAMILY MEMBER WITNESSES. PT UNABLE TO GET IN SHOWER AT THIS TIME DUE TO PAIN. EMAR REVIEWED. PT ABLE TO RECEIVE PERCOCET AT THIS TIME. 1 TAB PERCOCET TAKEN TO PT'S ROOM AND ADMINISTEED. SEE EMAR FOR EXACT TIME. PT ASSISTED BACK IN BED AND W/REPOSITIONING UP IN BED. PLAN TO OBTAIN ADHESIVE REMOVER TO REMOVE THE DRESSING TAPE AND OBTAIN AN ORDER FOR AN ABD BINDER DISCUSSED W/PT AND FAMILY. ALL ARE AGREEABLE.
--- NOTE | 2019-11-18 20:08 | NUR ---
[place] SUPERINTENDENT, CLAUS BACH TO PT'S ROOM AT THIS TIME FOR INTERVIEW.
--- NOTE | 2019-11-18 21:00 | NUR ---
THIS RN TO PT'S BEDSIDE TO ASSIST HER W/REMOVING ABD DRESSING. LARGE ABD DRESSING REMOVED AND SMALL TELFA DRESSING REMOVED. INCISION C/D/I W/DERMABOND. BATHING/INCISION SITE CARE TEACHING PROVIDED. PT OOB W/OUT ASSISTANCE. AMBULATORY TO SHOWER. FAMILY X 2 MEMBERS REMAIN IN ROOM W/PT. BATHING ITEMS AND CHG FOAM PROVIDED. PT DENIES FURTHER NEEDS AT THIS TIME.
--- NOTE | 2019-11-18 22:00 | NUR ---
WHILE AT PT'S BEDSIDE, PT QUESTIONS AGAIN ABOUT THE ABD BINDER. PT INFORMED THIS RN HAS OBTAINED IT AND IT WILL BE BROUGHT TO HER ROOM. PT W/C/O FEELING LIKE SHE NEEDS TO PASS GAS. SLIGHT ABD DISTENTION NOTED. HOT LIQUID DRINK OFFERED. PT REQUEST HOT CHOCOLATE. HOT CHOCOLATE SERVED AND ADDITIONAL TEACHING PROVIDED IN REGARDS TO AMBULATING TO ATTEMPT TO BE ABLE TO PASS FLATUS.
--- NOTE | 2019-11-18 22:51 | NUR ---
RN TO PT BEDSIDE WITH ABDOMINAL BINDER. PT INSTRUCTED ON THE USE OF ABDOMINAL BINDER AND HOW/WHEN TO APPLY BINDER TO ABDOMEN. PT VERBALIZES UNDERSTANDING. PT STATES ALL HER NEEDS HAVE BEEN MET AT THIS TIME. BED IN LOWEST POSITION. FAMILY AT BEDSIDE. SIDE RAILS UP X2, TELEPHONE AND CALL LIGHT WITHIN REACH.
[2019-11-19 00:10] VITALS: BP 102/43
--- NOTE | 2019-11-19 00:10 | NUR ---
VSS. PT COMPLAINS OF 6/10 PAIN, NO BLOOD NOTED ON PADS AT THIS TIME. PT IS SITTING UP IN BED, FAMILY AT BEDSIDE. PT STATES SHE WOULD LIKE SOME PRUNE JUICE. PRUNE JUICE PROVIDED TO PT. PT STATES ALL OTHER NEEDS HAVE BEEN MET. BED IN LOWEST POSITION, SIDE RAILS UPX2, CALL LIGHT AND TELEPHONE WITHIN REACH.
--- NOTE | 2019-11-19 00:24 | NUR ---
PT NOTIFIES RN THAT SHE HAS HAD A BOWEL MOVEMENT. PT STATES THAT THE FEELING OF BEING BLOATED HAS DECREASED SOME. RN ENCOURAGES AMBULATION TO IMPROVE GI FUNCTION AND DECREASE THE RISKS OF COMPLICATIONS THAT CAN BE ASSOCIATED WITH BEING SEDENTARY. PT REQUESTS THAT RN RETURN IN 10 MINUTES TO ASSIST PT IN AMBULATING WITHIN THE UNIT, RN AGREES TO RETURN.
--- NOTE | 2019-11-19 00:37 | NUR ---
ABDOMINAL BINDER APPLIED TO PT'S ABDOMEN. PT AMBULATING IN UNIT AT 0026 RN, STANDBY FOR ASSISTANCE IF NEEDED. PT LEAD BACK TO ROOM AT 0037. PT TOLERATED AMBULATION WELL.
[2019-11-19 03:46] VITALS: BP 86/50
--- NOTE | 2019-11-19 03:53 | NUR ---
VSS. PT STATES HER PAIN IS AN 8/10. PT PROVIDED HER SCHEDULED TORADOL PO. PT ENCOURAGED TO AMBULATE IN ROOM AND IN UNIT. PT REQUESTED ICE WATER, RN PROVIDED ICE WATER TO PATIENT. PT STATES ALL HER NEEDS HAVE BEEN MET. BED IN LOWEST POSITION, SIDE RAILS UP X2, TELEPHONE AND CALL LIGHT WITHIN REACH.
--- NOTE | 2019-11-19 05:14 | NUR ---
LYING ON RT SIDE. DOES NOT AROUSE TO THIS NURSE IN ROOM. RESPIRATIONS UNLABORED. HOB AT 15 DEGREES.
--- NOTE | 2019-11-19 07:01 | NUR ---
ASSUME CARE OF THIS PATIENT CURRENTLY RESTING WITH EYES CLOSED. RESPIRATIONS EVEN. IN CRIB, RESP EVEN. SIDERAILS UP X 2, CALL LIGHT IN REACH. WILL COMPLETE SHIFT ASSESSMENT WHEN AWAKE.
--- NOTE | 2019-11-19 07:59 | NUR ---
INFANT IN NURSERY. PT EYES CLOSED, RESPIRATIONS EVEN. VISITOR SLEEPING ON COUCH. LIGHTS ON LOW, SIDERAILS UP X 2, CALL LIGHT IN REACH.
--- NOTE | 2019-11-19 09:15 | NUR ---
LAYING IN RIGHT SIDE, EYES CLOSED, RESPIRATIONS EVEN. SIDE RAILS UP X 2, CALL LIGHT IN REACH. INFANT IN NURSERY. VISITOR SLEEPING ON COUCH. INFANT WILL RETURN TO ROOM AT 0930 PER NURSERY RN. WILL WAKE PATIENT UP AT THAT TIME FOR ASSESSMENT. BREAKFAST TRAY AT BEDSIDE.
[2019-11-19 09:30] VITALS: BP 110/96
--- NOTE | 2019-11-19 09:30 | NUR ---
SHIFT ASSESSMENT COMPLETED. AMBULATED TO BR TO VOID WITHOUT DIFFICULTY. HAS PASSED GAS AND HAD A BM SINCE YESTERDAY. AFTER VOIDING SITTING UP IN CHAIR HOLDING . CONSIDERING "SINCE IT'S COMING IN". DISCUSSED VS PUMPING AT THIS TIME. Roger MEDINA RN IN ROOM AND AWARE. IF NOT PLANNING TO BREASTFEED, DISCUSSED WAYS TO PREVENT ENGORGEMENT. A+ RUBELLA IMMUNE, GBS NEG, NON-SMOKER, HAD TDAP IN 2016 PER [place] [facility] RECORD. DESIRES FLU VACCINE PRIOR TO DC HOME. DENIES NEEDING ANYTHING AT THIS TIME. TO CALL IF ANYTHING IS NEEDED. VISITOR X 1 IN ROOM.
--- NOTE | 2019-11-19 11:10 | NUR ---
SITTING UP IN BED INFANT. SAYS SHE ALSO BREASTFED ON RIGHT BREAST. RETURNED TO BED TO CHANGE DIAPER. SAYS HER BACK STIFFNESS IS 6/10 AND THAT IT IS BETTER THAN EARLIER. SAYS 6 IS A LIVABLE NUMBER FOR HER. NO DISTRESS NOTED, NO GRIMACING NOTED. REMINDED NOT TO SIT WITH LEGS BENT AT KNEES WHILE SITTING IN BED TO AVOID DECREASED BLOOD FLOW AND FORMATION OF BLOOD CLOTS. UNBENT KNEES AT THIS TIME. VISITOR GETTING READY TO LEAVE. UP AD ZAIDA TO VOID AND AMBULATE. SIDE RAILS UP X 2, CALL LIGHT IS IN REACH. TO CALL IF ANYTHING IS NEEDED. FRESH WATER GIVEN. NO ADDITIONAL REQUESTS.
--- NOTE | 2019-11-19 12:55 | NUR ---
SITTING UP IN BED HOLDING . ASKED FOR ASSISTANCE REPLACING SCDS. REPLACED AND WORKING BILATERALLY. SAYS SHE WAS IN CHAIR BUT HER CHILD WANTED TO SIT THERE SO SHE RETURNED TO BED. PLANS TO AMBULATE AROUND UNIT NEXT TIME SHE IS UP. NO C/O PAIN AT THIS TIME. FOB AND TWO CHILDREN IN ROOM. TO CALL IF ANYTHING ELSE IS NEEDED. VERBALIZED UNDERSTANDING.
--- NOTE | 2019-11-19 13:24 | NUR ---
DR KRAUS CAME THROUGH L&D. PLANS TO DC PT AFTER 48 HOURS. WILL RETURN AFTER 1500 TO SEE PATIENT.
--- NOTE | 2019-11-19 13:58 | NUR ---
SITTING UP IN BED . DENIES NEEDING ANYTHING. FOB AND TWO OTHER CHILDREN REMAIN IN ROOM. TO CALL IF ANYTHING IS NEEDED.
[2019-11-19 14:35] VITALS: BP 99/49
--- NOTE | 2019-11-19 14:47 | NUR ---
CARMELO VISITED THE PATIENT THIS AM AT 1015. SHE WAS AND PARTIALLY DRESSED. CARMELO STATED I WOULD RETURN WHEN SHE WAS MORE COMFORTABLE. 1400 TC TO THE PATIENT THIS PM. SHE STATES CM COULD COME TO VISIT. CM EXPLAINED MY ROLE AND ASK FOR PERMISSION TO PROCEED WITH THE ASSESSMENT. THE PATIENT, THE FATHER OF THE BABY, NETO RAO, AND 3 AND 5 YR OLD SIBLINGS WERE PRESENT IN THE ROOM. PATIENT GAVE PERMISSION FOR THE INTERVIEW. AT DISCHARGE THE PATIENT AND HER FAMILY WILL BE STAYING WITH HER FATHER LAMONTE CAIN AT [address] [facility]. SHE STATES HER FATHER IS PROVIDING THE CAR SEAT AND A BASSINET FOR THE . HER FAMILY WILL ASSIST POSTDISCHARGE. SHE IS RECEIVING WIC AND FOODSTAMPS. SHE IS PRESENTLY UNEMPLOYED. SHE HAD BEEN A FLAME CUTTER PREVIOUSLY. MR RAO STATES HE IS EMPLOYED. SHE HAS A 3YR OLD BOY AND A 5 YR OLD GIRL, WHO ARE ACTIVE AND APPEAR HAPPY ABOUT THE BABY. THERE ARE 3- 4 STEPS TO ENTER HER HOME. SHE STATES SHE WILL HAVE ASSISTANCE INTO THE HOUSE. SHE HAS TRANSPORTATION TO HOME AND FOR HER AND THE INFANTS MD APPOINTMENTS. SHE UTILIZES [facility] [facility] [address] [facility] [address] FOR HER PRESCRIPTIONS. HOWEVER AT DISCHARGE SHE MAY HAVE TO USE [facility] ON [address]. THE PATIENT HAS BEEN UP TO AMBULATE BUT SHE STATES SHE IS SHORT OF BREATH WITH ACTIVITY. SHE HAD NOT AMBULATED WHEN THE DR VISITED THIS AM BUT REMAINS SHORT OF BREATH WHEN SHE WALKS. MD MAY NOT BE AWARE. SHE WAS TEARFUL DURING THE INTERVIEW SHE MENTIONED THE EMERGENCY HYSTERECTOMY. SHE STATES SHE DOES NOT FEEL WELL AND IS SAD. CARMELO ASK IF I COULD CALL THE [facility] BUT SHE STATES HER FRAUD PREVENTION ANALYST IS COMING THIS AFTERNOON. CARMELO ALSO ADVISED SHE MAY WANT TO [facility]CT [facility] FOR [facility] COUNSELING. SHE HAD A VISIT FROM [facility] "LAST NIGHT". SHE HAS NOT HEARD FROM THEM TODAY. CARMELO SPOKE WITH AGSUTO THE NURSERY NURSE. ADVISED THE PATIENT IS COMPLAINING OF FEELING SHORT OF BREATH W/ ACTIVITY. ADVISED THE PATIENT WAS TEARFUL ABOUT HYSTERECTOMY ALTHOUGH SHE HAD PLANNED TO HAVE PROCEDURE POST DELIVERY. ADVISED NURSE I HAD OFFERED THE [facility] AND REFERENCED [facility] ON [facility] FOR COUNSELING. AGUSTO WILL SPEAK WITH THE POST STAFF. NO FURTHER COMMUNICATION FROM [facility] TODAY PER THE NURSERY STAFF.
--- NOTE | 2019-11-19 15:01 | NUR ---
PERCOCET 5 MG GIVEN PO FOR RELIEF OF LBP. DESIRES TO WALK NOW. ASSISTED WITH PLACEMENT OF ABDOMINAL BINDER. SAYS SHE WAS UP EARLIER AND HAD SOME SOB. SAYS SHE WAS BURPING AND HAD HICCUPS AT THE SAME TIME.
--- NOTE | 2019-11-19 15:15 | NUR ---
AMBULATED TO [facility] WINDOWS, TO NURSES DESK ON L&D AND BACK TO ROOM. SOB NOTED WHILE AMBULATING. PULSE OX PLACED WHILE AMBULATING FROM L&D BACK TO ROOM. PULSE OX AT 99%. HR 93-113 DURING AMBULATION. DESIRES TO SIT IN CHAIR AT THIS TIME FOB AND CHILDREN REMAIN IN ROOM. IN NURSERY. TO CALL IF ANYTHING IS NEEDED. REMINDED TO CHANGE JASON-PAD OVER INCISION WITH EACH TIME IN BATHROOM. VERBALIZED UNDERSTANDING. DESIRES TO READ MORE INFORMATION REGARDING FLU VACCINE BEFORE TAKING.
--- NOTE | 2019-11-19 15:16 | NUR ---
SITTING UP IN BED. IN CRIB, FOB AND 2 CHILDREN IN THE ROOM. SAYS HER LOW BACK IS HURTING 8/10 THROBBING. SCHEDULED TORADOL GIVEN. DISCUSSED PAIN MANAGEMENT OPTIONS. DESIRES PERCOCET 5 MG NOW VS 10 MG DOSE. ALSO DESIRES TO AMBULATE.
--- NOTE | 2019-11-19 15:48 | NUR ---
SITTING UP ON COUCH WATCHING TV AND HOLDING INFANT. NO CURRENT VISITORS. SAYS HER PAIN IS BETTER "A CALM 6". NO SOB NOTED, RESP 20. NO CURRENT VISITORS, LIGHTS ON LOW. NO REQUESTS. TO CALL IF ANYTHING IS NEEDED. VERBALIZED UNDERSTANDING.
--- NOTE | 2019-11-19 16:10 | NUR ---
DR KRAUS ON L&D. WAS NOTIFIED OF PT SOB WHEN AMBULATING, PULSE OX OF 99% AND TACHYCARDIA. CURRENTLY AT REST WITH SOB OR DISTRESS. PLANS TO DC PATIENT TOMORROW. NURSERY RN NOTIFIED.
--- NOTE | 2019-11-19 16:35 | NUR ---
AMBULATING IN ROOM. IN CRIB. NO DISTRESS NOTED, NO SOB NOTED. SAYS SHE IS HUNGRY, SANDWICH TRAY AND [place] DRINK GIVEN. WRITTEN INFORMATION ON FLU VACCINE GIVEN TO PATIENT. WILL BE DC'D TOMORROW. NO CURRENT VISITORS. PHONE IN REACH, NO ADDITIONAL REQUESTS. INSTRUCTED PT TO LET RN KNOW WHEN READY TO TAKE A SHOWER. ITEMS IN ROOM. WILL CHANGE LINENS WHILE IN SHOWER. VERBALIZED UNDERSTANDING.
--- NOTE | 2019-11-19 17:46 | NUR ---
SITTING UP ON COUCH. TALKING TO VISITOR. DINNER TRAY SERVED. NO CURRENT REQUESTS. TO CALL IF ANYTHING IS NEEDED.
--- NOTE | 2019-11-19 18:00 | NUR ---
TRANSMISSION TECHNICIAN- DR MIGUELITO OLIVARES MOTHER WILL BE BREAST FEEDING INFANT'S NAME- GIO RAO
--- NOTE | 2019-11-19 19:10 | NUR ---
BEDSIDE REPORT REC'D FROM Jr RANDLE, RN. PT REC'D SITTING UP ON COUCH CONVERSING AND LAUGHING WITH VISITORS. STATES PAIN IS "CALM 5-6/10" AND DENIES NEED FOR INTERVENTION. REQUESTS SUPPOSITORY AND STOOL SOFTENERS. REPORTS THAT SHE HAS NOT HAD BM SINCE THE DAY BEFORE AND FEELS URGE TO GO BUT CAN'T PASS IT. DR. KRAUS CONTACTED AND ORDERS REC'D. WILL CONTINUE TO MONITOR.
--- NOTE | 2019-11-19 20:08 | NUR ---
MIRALAX, DULCOLAX, COLACE, MOM, AND SIMETHICONE GIVEN PER ORDER AND PT REQUEST. EDUCATED ON EACH MED, VERBALIZES UNDERSTANDING. ICE WATER PROVIDED AND PT ENCOURAGED TO INCREASE FLUID INTAKE AND CONTINUE TO AMBULATE ON UNIT AND IN ROOM. VERBALIZES UNDERSTANDING. ADDITIONAL VISITORS TO ROOM WHILE RN IN ROOM AND PT REQUEST TO HAVE ASSESSMENT PERFORMED WHEN VISITORS ARE NOT IN ROOM. FLU VACCINE DISCUSSED WITH PT AND SHE STATES THAT SHE DOES NOT WANT VACCINE AT THIS TIME AND WILL NOTIFY RN IF SHE CHANGES HER MIND, DENIES QUESTIONS ABOUT VACCINE AND STATES THAT SHE READ INFO SHEET THAT DAY SHIFT PROVIDED HER WITH. CURRENTLY SITTING ON EDGE OF BED CONVERSING AND LAUGHING WITH FAMILY MEMBERS, DENIES NEEDS. BED IN LOW POSITION WITH SRUP X2. CALL LIGHT AND PHONE WITHIN PT REACH. IN VISITORS ARMS. HAND HYIGENE DISCUSSED AND ENCOURAGED WITH ALL VISITORS. WILL CONTINUE TO MONITOR.
[2019-11-19 21:33] VITALS: BP 104/53
--- NOTE | 2019-11-19 21:33 | NUR ---
C/O ABD CRAMPING AND INCISIONAL DISCOMFORT 08/01. TORADOL GIVEN PER ORDER AND PERCOCET 10 GIVEN PER PT REQUEST. SITTING IN HIGH FOWLERS POSITION PREPARING TO BF AND CONVERSING WITH HER MOTHER AND OTHER VISITORS. SHIFT ASSESSMENT COMPLETED PER FLOWSHEET. REPORTS SHE IS PASSING FLATUS SINCE RECEIVING STOOL SOFTENERS AND SIMETHICONE. VSS. FUNDUS FIRM, MIDLINE AND U2 WITH SCANT RUBRA LOCHIA, NO CLOTS NOTED. 3 MLS BLOOD TO PERIPAD THAT PT CHANGED PRIOR TO RN COMPLETING SHIFT ASSESSMENT. ICE WATER PROVIDED, DISCUSSED USE OF ABD BINDER, REPORTS THAT SHE IS USING WHEN SHE AMBULATES IN [place] AND LEAVING OFF WHEN IN ROOM. APPLE JUICE PROVIDED. DENIES ADDITIONAL NEEDS. BED IN LOW POSITION WITH SRUP X2. CALL LIGHT AND PHONE WITHIN REACH. WILL CONTINUE TO MONITOR.
--- NOTE | 2019-11-19 22:15 | NUR ---
PAIN REASSESSMENT COMPLETED, "CALM 6." STATES THAT THIS IS AN ACCEPTABLE PAIN RATING FOR HER. DENIES NEED FOR ADDITIONAL INTERVENTION. INFANT RESTING QUIETLY IN OPEN CRIB. REFUSES TO SHOWER AND HAVE LINENS CHANGED. STATES THAT SHE WILL SHOWER IN A.M. PRIOR TO GOING HOME. EDUCATED ON IMPORTANCE OF HYIGENE IN INFECTION PREVENTION, VERBALIZES UNDERSTANDING. BED IN LOW POSITION WITH SRUP X2. CALL LIGHT AND PHONE WITHIN REACH. PT'S MOTHER RESTING ON COUCH AT BEDSIDE.
--- NOTE | 2019-11-20 00:22 | NUR ---
RESTING QUIETLY WITH EYES CLOSED LAYING ON RIGHT SIDE. RESP REGULAR AND UNLABORED, NO S/S OF DISTRESS NOTED. INFANT IN NBN. CALL LIGHT AND PHONE WITHIN REACH. WILL CONTINUE TO MONITOR.
--- NOTE | 2019-11-20 02:18 | NUR ---
RESTING QUIETLY WITH EYES CLOSED LAYING ON RIGHT SIDE. RESP REGULAR AND UNLABORED, NO S/S OF DISTRESS NOTED. PT NOT DISTURBED TO ALLOW FOR REST. REMAINS IN NBN. PT'S MOTHER RESTING QUIETLY ON COUCH IN ROOM. BED IN LOW POSITION WITH SRUP X2. CALL LIGHT AND PHONE WITHIN REACH. WILL CONTINUE TO MONITOR.
[2019-11-20 03:38] VITALS: BP 94/57
--- NOTE | 2019-11-20 03:38 | NUR ---
PT RESTING ON RIGHT SIDE WITH EYES CLOSED UPON RN ENTRY TO ROOM. TORADOL GIVEN PER ORDER. C/O ABD SORENESS, CRAMPING AND INCISIONAL DISCOMFORT AND LEFT HIP DISCOMFORT 07/01. REPORTS THAT HIP BEGAN HURTING AFTER "IT POPPED WHEN I JUST ROLLED OVER." STANDBY ASSIST TO BR. PT NOTED TO LIMPING ON RLE AND RUBBING RLE. CLARIFIED AND PT CONTINUES TO REPORT LLE AND L HIP DISCOMFORT. PERCOCET OFFERED AND DECLINED AT THIS TIME. REPORTS THAT SHE WILL CALL RN IF SHE NEEDS ADDITIONAL MEDICATION. STATES THAT WILL BE COMING TO ROOM AT 0400 FOR FEEDING. REFUSES SCD'S. PT'S MOTHER CONTINUES TO REST ON COUCH IN ROOM. BED IN LOW POSITION WITH SRUP X2. CALL LIGHT AND PHONE WITHIN REACH. PILLOW CASES AND BLANKETS CHANGED D/T PT SPILLING WATER WHEN GETTING BACK IN BED.
--- NOTE | 2019-11-20 04:13 | NUR ---
PAIN REASSESSMENT COMPLETED. "CALM 6-05/31" PERCOCET OFFERED AND DECLINED BY PT. CURRENTLY BF INFANT. DENIES NEEDS. BED IN LOW POSITION WITH SRUP X2. CALL LIGHT AND PHONE WITHIN REACH. WILL CONTINUE TO MONITOR.
--- NOTE | 2019-11-20 06:26 | NUR ---
LAYING ON LEFT SIDE RESTING WITH EYES CLOSED. RESP REGULAR AND UNLABORED, NO S/S OF DISTRESS NOTED. IN NBN. PT NOT DISTURBED TO ALLOW FOR REST. BED IN LOW POSITION WITH SRUP X2. CALL LIGHT AND PHONE WITHIN REACH. WILL CONTINUE TO MONITOR.
--- NOTE | 2019-11-20 06:49 | NUR ---
C/O LEFT HIP AND HEADACHE 08/31. PERCOCET 10 GIVEN PER PT REQUEST. C/O SEEING BLACK SPOTS. NO EDEMA NOTED, NO C/O NAUSEA/VOMITING, EPIGASTRIC PAIN. 2+ DRT'S TO PATELLA. PT REPORTS THAT FEELS LIKE HER NECK IS STIFF AND SHE THINKS THAT THIS IS THE CAUSE OF HER HEADACHE. PT LAID FLAT, DENIES CHANGE IN HEADACHE. WARM BLANKET PLACED AROUND PT'S NECK. REPORTED TO DR. BALDERAS. ORDERS REC'D TO ADMINISTER ONE TIME DOSE OF 5 MG PO FLEXERIL.
--- NOTE | 2019-11-20 08:30 | NUR ---
AM ASSESSMENT COMPLETED PER FLOWSHEET. PT LAYING FLAT IN BED WITH HER HEAD COVERED WITH A TOWEL. C/O HEADACHE THAT BEGAN JUST THIS AM. RATES PAIN AT 7/10. INCISION CLEAN AND DRY, SCANT BLEEDING NOTED TO JASON PAD. IN CRIB AT BEDSIDE. AND PT MOTHER SLEEPING ON BEDSIDE SOFA. SIDE RAILS UP X 2 WITH PHONE AND CALL LIGHT IN REACH.
[2019-11-20 09:00] VITALS: BP 118/67
--- NOTE | 2019-11-20 11:10 | NUR ---
DR. BALDERAS CALLS TO UNIT, INFORMS THIS RN THAT A CBC HAS BEEN ORDERED FOR NOW. FEBRUARY IN THE LAB NOTIFIED.
[2019-11-20 11:57] LABS: BASOPHILS 0.1 % (0-2); EOSINOPHILS 4.8 % (0-7); HEMATOCRIT 25.8 % (36.0-48.0); HEMOGLOBIN 8.6 g/dL (12-16); IMMATURE GRANULOCYTES 0.3 % (0-5); LYMPHOCYTES 19.4 % (15-50); MCH 28.7 pg (26.0-34.0); MCHC 33.3 g/dL (31.0-37.0); MEAN PLATELET VOLUME 9.2 fL (7.4-10.4); MONOCYTES 6.8 % (2-11); NEUTROPHILS 68.6 % (40-80); PLATELET COUNT 195 10x3/uL (130-400); RDW 14.9 % (11.5-14.5); WBC 7.1 10x3/uL (4.8-10.8)
--- NOTE | 2019-11-20 12:30 | NUR ---
PAIN MED GIVEN SCANNED ON EMAR. PT SITTING UP IN BED HOLDING . RATES PAIN AT 7/10 AND STATES THAT IS MAINLY HEADACHE THAT IS CAUSING HER PAIN. SHE IS ON THE PHONE WITH [facility] AT THIS TIME ABOUT WHEN SHE WILL BE DISCHARGED. PT DENIES ANY OTHER NEEDS FOR NURSE AT THIS TIME.
--- NOTE | 2019-11-20 13:16 | NUR ---
ORDER RECEIVED TO TRANSFUSE 1 UNIT PRBC. VASCULAR ACCESS NURSE CONSULT PLACED DUE TO PT BEING DIFFICULT STICK ON ADMIT AND NO IV ACCESS AT THIS TIME.
--- NOTE | 2019-11-20 14:21 | NUR ---
OLGA, VASCULAR ACCESS NURSE, AT BEDSIDE.
--- NOTE | 2019-11-20 16:00 | NUR ---
VSS, IV TO LEFT AC FLUSHED EASILY WITH 5ML NS. FIRST UNIT OF PRBC STARTED AT 75ML/HR X 50ML.
--- NOTE | 2019-11-20 16:15 | NUR ---
VSS AND PT DENIES DISCOMFORT AT THIS TIME. BLOOD TRANSFUSION CONTINUES WITH RATE INCREASED TO 150ML/HR. PT WATCHING TV WITH CALL LIGHT IN REACH AND SIDE RAILS UP X 2.
--- NOTE | 2019-11-20 17:00 | NUR ---
LARGE ICE WATER REQUESTED. PAIN MED GIVEN FOR COMPLAINT OF PAIN THAT SHE RATES AT 5/10. BLOOD TRANSFUSION CONTINUE TO INFUSE. NO OTHER NEEDS AT THIS TIME.
[2019-11-20 17:30] VITALS: BP 112/70
[2019-11-20 18:15] VITALS: BP 117/77
--- NOTE | 2019-11-20 18:15 | NUR ---
TRANSFUSION COMPLETED WITHOUT COMPLAINT. VSS CHARTED ON FLOWSHEET. PT RATES PAIN AT 4/10. IV SALINE LOCKED, IN CRIB AT BEDSIDE. SIDE RAILS UP X 2 WITH CALL LIGHT IN REACH.
--- NOTE | 2019-11-20 19:25 | NUR ---
PM ROUNDS MADE, PT INFANT AT THIS TIME, REPORTS TO BE FEELING BETTER, INFORMED PT THAT I WILL BE BACK SHORTLY TO DO ASSESSMENT, PT VERBALIZES UNDERSTANDING, DENIES PAIN AT THIS TIME, REQUESTED AND SERVED FRESH H20, DENIES FURTHER NEEDS
--- NOTE | 2019-11-20 20:21 | NUR ---
PT IS STILL , REPORTS BABY DIDN'T BREASTFEED EARLIER, PT INST TO USE CALL LIGHT WHEN FINISHED , PT VERBALIZES UNDERSTANDING, PT ALSO INFORMED THAT "LAMONTE" CALLED, SHE STATES "HE IS MY PAWPAW", INFORMED PT THAT WE COULD NOT TELL HIM WE HAD A PT HERE BY THAT NAME SINCE SHE WAS A CONFIDENTIAL PT, PT STATES "I THOUGHT IT WOULD BE OK FOR YOU TO TELL HIM SINCE HE WORKS HERE", INFORMED PT THAT EVEN THOUGH HE WORKS HERE, WE STILL COULD NOT TELL HIM DUE TO CONFIDENTIAL STATUS, PT VERBALIZES UNDERSTANDING, DENIES FURTHER NEEDS, BED IN LOW POSITION, SIDE RAILS X 2, CALL LIGHT IN REACH
[2019-11-20 21:00] VITALS: BP 125/68
--- NOTE | 2019-11-20 21:00 | NUR ---
PT PRINT LINE INSPECTOR LIGHT, FINISHED FEEDING , ASSESSMENT PER FLOW SHEET, VS OBTAINED, SALINE LOCK IN LEFT AC INTACT WITH NO REDNESS OR EDEMA, BIKINI INC WITH DERMABOND CDI WITH NO DRAINAGE NOTED, JASON PAD OVER INC FOR COMFORT AND MOISTURE CONTROL, PT INST ON AND VERBALIZES INC CARE, STATES "I KNOW", PT REPORTS FLATUS, NO BM, VOIDING WITH NO DIFFICULTY, AND NO VAG BLEEDING, PT C/O HIP AND INC PAIN, AND CRAMPING, WILL ADM PAIN MED, PT'S GRANDMOTHER HOLDING
--- NOTE | 2019-11-20 21:15 | NUR ---
ADM PERCOCET, TORADOL AND COLACE PER MD ORDERS, SEE EMAR, PT DENIES FURTHER NEEDS, BED IN IN LOW POSITION, SIDE RAILS X 2, CALL LIGHT IN REACH
--- NOTE | 2019-11-20 22:30 | NUR ---
PT RESTING WITH EYES CLOSED, RESP QUIET, NO DISTRESS NOTED, LEFT UNDISTURBED AT THIS TIME, ASLEEP IN OPEN CRIB CART, PT'S GRANDMOTHER ASLEEP ON COUCH
[2019-11-21 03:07] VITALS: BP 111/56
--- NOTE | 2019-11-21 03:07 | NUR ---
PT RESTING WITH EYES CLOSED, AROUSES TO SOFT VERBAL STIMULATION, VS OBTAINED, ADM TORADOL PER MD ORDERS, SEE EMAR, PT DENIES NEEDS, INFANT ASLEEP IN OPEN CRIB CART, AND PT'S GRANDMOTHER ASLEEP AT BEDSIDE
--- NOTE | 2019-11-21 04:30 | NUR ---
IN TO PATIENTS ROOM PER REQUEST OF MALENA WALKER RN TO BRING INFANT TO NURSERY. PATIENT ASKING WHY I NEEDED THE BABY, EXPLAINED THAT THE BABY NEEDED TO BE WEIGHED. PT QUESTIONING WHY THE BABY WASNT WEIGHED AT MIDNIGHT. EXPLAINED THAT THE WEIGHTS HAVE TO BE DONE AFTER MIDNIGHT AND THAT SHE HAD BEEN IN A DELIVERY WHERE NOW SHE IS CONFINED TO THE NURSERY WITH A LEVEL 2 BABY WHICH IS WHY SHE SENT ME IN THE ROOM TO GET THE BABY. PATIENTS MOTHER ASKING WHY MALENA DIDNT COMMUNICATE THAT WITH THEM, I PROCEEDED TO EXPLAIN THAT ONCE SHE WAS IN A DELIVERY SHE WASNT ABLE TO COME OUT, AT THIS POINT THE MOTHER STATES, "DO I NEED TO CALL [facility]?" I SAID IF THAT IS WHAT SHE WANTED TO DO SHE COULD. SHE THEN ASKED ME WHY I WAS MAKING EXCUSES FOR MALENA INSTEAD OF APOLOGIZING AND ASKED WHAT MY NAME WAS AND THEN DISMISSED ME. I ASKED THE PT AT THIS TIME IF SHE WANTED THE BABY TO GO TO THE NURSERY AND SHE SAID THAT WOULD BE FINE.
--- NOTE | 2019-11-21 05:10 | NUR ---
PT CHECKING DEPARTMENT SUPERVISOR LIGHT, PT REQUESTS SL BE LOOKED AT, THIS RN TO ROOM, SALINE LOCK IN LEFT AC INTACT, FLUSHED WITH 10MLS OF NS WITH NO DIFFICULTY, PT DENIES FURTHER NEEDS OR PAIN, PT'S GRANDMOTHER IS BOTTLE FEEDING AT THIS TIME
[2019-11-21 06:32] LABS: BASOPHILS 0.1 % (0-2); EOSINOPHILS 5.3 % (0-7); HEMATOCRIT 29.1 % (36.0-48.0); HEMOGLOBIN 9.7 g/dL (12-16); IMMATURE GRANULOCYTES 0.4 % (0-5); LYMPHOCYTES 26.2 % (15-50); MCH 28.9 pg (26.0-34.0); MCHC 33.3 g/dL (31.0-37.0); MCV 86.6 fL (80.0-100.0); MEAN PLATELET VOLUME 9.7 fL (7.4-10.4); MONOCYTES 7.2 % (2-11); NEUTROPHILS 60.8 % (40-80); PLATELET COUNT 210 10x3/uL (130-400); RBC 3.36 10x6/uL (4.00-5.40); RDW 14.9 % (11.5-14.5); WBC 7.6 10x3/uL (4.8-10.8)
--- NOTE | 2019-11-21 07:55 | NUR ---
AM ROUNDS WITH Koffi PRASAD RN. PATIENT RESTING WITH EYES CLOSED. SHIFT REPORT COMPLETED AT NURSES STATION.
--- NOTE | 2019-11-21 08:15 | NUR ---
IN TO SEE PATIENT. LIGHTS VERY LOW IN ROOM. BREAKFAST TRAY AT BEDSIDE. NO COMPLAINTS OR NEEDS AT THIS TIME.
[2019-11-21 09:40] VITALS: BP 103/61
--- NOTE | 2019-11-21 09:40 | NUR ---
ASSESSMENT COMPLETED. SEE FLOWSHEET. PT. VERY UNCOMFORTABLE. OFFERED PAIN MED. IV D/C'D, CATHETER INTACT. PRESSURE APPLIED TO INSERTION SITE. BANDAGE AND 4X4 APPLIED TO SITE.
--- NOTE | 2019-11-21 11:25 | NUR ---
PT PULLED EMERGENCY CALL LIGHT IN BATHROOM. PATIENT WAS GETTING IN THE SHOWER; WHEN SHE REMOVED THE JASON PAD FROM HER INCISION SHE SAW BLOOD ON THE PAD. SCANT AMOUNT OF RED/BROWN BLOOD NOTED ON RIGHT SIDE OF PAD. INCISION INTACT, NO ACTIVE BLEEDING OR DRAINAGE NOTED. PATIENT STATES SHE IS OK TO SHOWER. WILL APPLY CLEAN PAD TO INCISION FOLLOWING SHOWER AND MONITOR.
--- NOTE | 2019-11-21 13:15 | NUR ---
PATIENT SHOWERD AND DRESSED. PERIPAD ON INCISION. VERY SCANT AMOUNT OF BLOOD NOTED FROM RIGHT CORNER OF INCISION ON PAD--APPROXIMATELY LESS THAN 1.5CM IN DIAMETER AND ONLY ON THE TOP SURFACE OF THE PAD. INCISION STILL INTACT. PATIENT ENCOURAGED TO KEEP AREA CLEAN AND DRY AND TO CONTINUE TO MONITOR FOR ANY CHANGES IN BLEEDING OR DRAINAGE FROM SURGICAL SITE.
[2019-11-21] MEDS ORDERED: PERCOCET 5-3251 TAB PO (14:03)
--- NOTE | 2019-11-21 14:15 | NUR ---
DISCHARGE INSTRUCTIONS REVIEWED WITH PATIENT. PRESCRIPTION GIVEN. INSTRUCTED PATIENT TO CALL DR. BALDERAS'S OFFICE AFTER THE HOLIDAY TO ARRANGE FOR FOLLOW-UP APPOINTMENT TO BE SCHEDULED 2 WEEKS FROM DATE OF DISCHARGE. REVIEWED INCISION CARE. STATES UNDERSTANDING.
[2019-11-21 15:09] LABS: UDSC - AMPHET Negative ng/mL (Cutoff=1000); UDSC - BARB Negative ng/mL (Cutoff=300); UDSC - BENZO Negative ng/mL (Cutoff=300); UDSC - COC Negative ng/mL (Cutoff=300); UDSC - METH Negative ng/mL (Cutoff=300); UDSC - OPIATES Negative ng/mL (Cutoff=300); UDSC - PCP Negative ng/mL (Cutoff=25); UDSC - PROPOXY Negative ng/mL (Cutoff=300); UDSC - THC Negative ng/mL (Cutoff=50)
--- NOTE | 2019-11-21 15:25 | NUR ---
DISCHARGED HOME VIA WHEELCHAIR TO PRIVATE VEHICLE ACCOMPANIED BY FAMILY AND HOSPITAL STAFF.
== END 2019-11-21 15:32 | disposition home or self-care (01) | DRG 785 ==
LOC: D.LD 10:29
PROVIDERS: Obstetrics & Gynecology; ADMIT Student in an Organized Health Care Education/Training Program; ATTEND Student in an Organized Health Care Education/Training Program
PROC: 0UT90ZL Resection of Uterus, Supracervical, Open Approach (ICD-10-PCS; 2019-11-17)
PROC: 10D00Z1 Extraction of Products of Conception, Low, Open Approach (ICD-10-PCS; principal; 2019-11-17 12:00)
PROC: 0UT70ZZ Resection of Bilateral Fallopian Tubes, Open Approach (ICD-10-PCS; 2019-11-17 12:00)
DX: O34.219 Maternal care for unspecified type scar from previous cesarean delivery (principal); Z3A.39 39 weeks gestation of pregnancy; Z37.0 Single live birth; O90.81 Anemia of the puerperium; D64.9 Anemia, unspecified; R51 Headache; O75.89 Other specified complications of labor and delivery; N80.0 Endometriosis of uterus

== ENCOUNTER → 2020-04-04 08:17 | Outpatient (CLI) | payer MEDICAID ==
[2019-11-17 10:50] VITALS: BMI 46.9
== END | disposition home or self-care (01) ==
LOC: D.NM 08:15
PROVIDERS: ATTEND Orthopaedic Surgery
DX: M25.551 Pain in right hip (principal)